=== PATIENT | male | born 1970 | race Caucasian/White ===

== ENCOUNTER 2017-07-06 17:20 | Inpatient (IN) | payer MEDICAID ==
[~2017-07-06] VITALS: Ht 172.7 cm; Wt 72.0 kg
[2017-07-06] MEDS ORDERED: morphine 4 MG/ML VIAL IV STA (18:11)
[2017-07-06] MEDS ORDERED: ONDANSETRON 4 MG INJ IV STA (18:11)
[2017-07-06] MEDS ORDERED: SOD CHLORIDE 0.9% 1,000 ML IV STA (18:11)
[2017-07-06 18:47] LABS: ABNORMAL IP MESSAGE 1; BASOPHIL # 0.1 10^3/ul (0.0-0.1); HEMATOCRIT 46.9 % (42.0-52.0); HEMOGLOBIN 15.7 g/dl (14.0-18.0); LYMPHOCYTES # 0.4 10^3/ul (0.8-2.9); LYMPHOCYTES % 3.7 % (15.0-51.0); MEAN CORPUSCULAR HEMOGLOBIN 33.1 pg (29.0-33.0); MEAN CORPUSCULAR HGB CONC 33.5 g/dl (32.0-37.0); MEAN CORPUSCULAR VOLUME 98.9 fl (82.0-101.0); MEAN PLATELET VOLUME 10.9 fl (7.4-10.4); MONOCYTE # 0.5 10^3/ul (0.3-0.9); MONOCYTES % 4.5 % (0.0-11.0); NEUTROPHILS % 90.2 % (39.0-77.0); PLATELET COUNT 139 10^3/UL (140-415); POSITIVE DIFF @See below; RED BLOOD COUNT 4.74 10^6/ul (4.70-6.10); RED CELL DISTRIBUTION WIDTH 12.3 % (11.5-14.5); WHITE BLOOD COUNT 10.8 10^3/ul (4.8-10.8)
[2017-07-06] MEDS ORDERED: DIAZEPAM 5 MG/ML SYG IV ONE (19:00)
[2017-07-06] MEDS ORDERED: LORAZEPAM 2 MG INJ IV ONE ×2 (19:00→20:00)
[2017-07-06 19:05] LABS: ALBUMIN 5.5 g/dl (3.3-4.9); ALBUMIN/GLOBULIN RATIO 1.41; BILIRUBIN,INDIRECT 0.9 mg/dl (0-1.1); BILIRUBIN,TOTAL 0.9 mg/dl (0.2-1.3); CREATININE 0.9 mg/dl (0.61-1.24); POTASSIUM 3.4 mmol/L (3.5-5.1); TOTAL PROTEIN 9.4 g/dl (6.1-8.1)
[2017-07-06] MEDS ORDERED: MULTI PO (19:07)
[2017-07-06] MEDS ORDERED: [UNRECOGNIZED DRUG - CODE] PO (19:11)
[2017-07-06] MEDS ORDERED: SOD CHLORIDE 0.9% 1,000 ML IV ONE ×2 (20:00→21:30)
[2017-07-06] MEDS ORDERED: ONDANSETRON 4 MG INJ IV PRN ×2 (20:30→21:30)
[2017-07-06] MEDS ORDERED: ACETAMINOPHEN 325 MG TAB PO PRN (20:30)
[2017-07-06 20:47] VITALS: PULSE 117
[2017-07-06 20:53] VITALS: BP 154/86; RESP 19
[2017-07-06 20:55] VITALS: Ht 172.7 cm; Wt 72.0 kg
[2017-07-06] MEDS: SOD CHLORIDE 0.9% 1,000 ML IV SCH (21:30)
--- NOTE | 2017-07-06 21:32 | ERA ---
ER Documentation Chief Complaint Date/Time DATE: 07/06/17 TIME: 21:24 Chief Complaint Pt vomiting since last night, unable to keep any liquids down. HPI This 46-year-old male presents for vomiting since last night. He can hold any food down. He denies any pain whether abdominal or chest. Has no fevers and chills. He does drink heavily every day but is unable to drink alcohol since he started vomiting. Last drink was yesterday. No blood in the vomit. He states that except for being an alcoholic he is otherwise healthy. ROS All systems reviewed and are negative except as per history of present illness. Medications Home Meds Reported Medications Diphenhydramine HCl (Z-Sleep) Unknown Strength Capsule, 1 CAP PO QHS, CAP 07/06/17 Multivitamins* (Theragran*) 1 Tab Tab, 1 TAB PO DAILY Y for PRN, TAB 07/06/17 Allergies Allergies: Coded Allergies: No Known Allergy (Unverified , 07/06/17) PMhx/Soc Medical and Surgical Hx: pt denies Surgical Hx History of Surgery: No Anesthesia Reaction: No Hx Neurological Disorder: No Hx Respiratory Disorders: No Hx Cardiac Disorders: No Hx Miscellaneous Medical Probl: Yes (ETOH abuse) Hx Alcohol Use: Yes (everyday hard liquor) Hx Substance Use: No Hx Tobacco Use: No Smoking Status: Never smoker Physical Exam Vitals Vital Signs Date Time Temp Pulse Resp B/P Pulse Ox O2 Delivery O2 Flow Rate FiO2 07/06/17 19:00 120 20 149/99 97 Room Air 07/06/17 17:24 97.9 130 18 156/104 97 Physical Exam Const: [] Moderate distress, appears very uncomfortable, shaking, vomiting Head: Atraumatic Eyes: Normal Conjunctiva ENT: Normal External Ears, Nose and Mouth. Neck: Full range of motion..~ No meningismus. Resp: Clear to auscultation bilaterally Cardio: Regular tachycardia, no murmurs Abd: Soft, non tender, non distended. Normal bowel sounds Skin: No petechiae or rashes Back: No midline or flank tenderness Ext: No cyanosis, or edema, resting tremor that does not disappear on intention of bilateral upper extremities Neur: Awake and alert and oriented 3, no focal deficits, cranial nerves II through XII intact, no cerebellar deficits Psych: Normal Mood and Affect Result Diagram: 07/06/17 4189 07/06/174 Results 24 hrs Laboratory Tests Test 07/06/17 18:24 White Blood Count 10.810^3/ul Red Blood Count 4.7410^6/ul Hemoglobin 15.7g/dl Hematocrit 46.9% Mean Corpuscular Volume 98.9fl Mean Corpuscular Hemoglobin 33.1pg Mean Corpuscular Hemoglobin Concent 33.5g/dl Red Cell Distribution Width 12.3% Platelet Count 83553^3/UL Mean Platelet Volume 10.9fl Neutrophils % 90.2% Lymphocytes % 3.7% Monocytes % 4.5% Eosinophils % 0.0% Basophils % 1.0% Nucleated Red Blood Cells % 0.0/100WBC Neutrophils # (Manual) 9.710^3/ul Lymphocytes # 0.410^3/ul Monocytes # 0.510^3/ul Eosinophils # 0.010^3/ul Basophils # 0.110^3/ul Nucleated Red Blood Cells # 0.010^3/ul Sodium Level 145mmol/L Potassium Level 3.4mmol/L Chloride Level 98mmol/L Carbon Dioxide Level 17mmol/L Anion Gap 33 Blood Urea Nitrogen 8mg/dl Creatinine 0.90mg/dl Glucose Level 232mg/dl Calcium Level 10.0mg/dl Total Bilirubin 0.9mg/dl Direct Bilirubin 0.00mg/dl Indirect Bilirubin 0.9mg/dl Aspartate Amino Transf (AST/SGOT) 283IU/L Alanine Aminotransferase (ALT/SGPT) 111IU/L Alkaline Phosphatase 154IU/L Total Protein 9.4g/dl Albumin 5.5g/dl Globulin 3.90g/dl Albumin/Globulin Ratio 1.41 Lipase 184U/L Current Medications Medications (Trade) Dose Ordered Sig/Yu Route PRN Reason Start Time Stop Time Status Last Admin Dose Admin Sodium Chloride (NS) 1,000 ml @ 1,000 mls/hr Q1H STAT IV 07/06/17 18:11 07/06/17 19:10 DC 07/06/17 18:38 Morphine Sulfate (morphine) 4 mg ONCE STAT IV 07/06/17 18:11 07/06/17 18:13 DC Ondansetron HCl (Zofran Inj) 4 mg ONCE STAT IV 07/06/17 18:11 07/06/17 18:13 DC 07/06/17 18:38 Diazepam (Valium) 5 mg ONCE ONCE IV 07/06/17 19:00 07/06/17 19:01 DC 07/06/17 18:43 Lorazepam 1 mg 1 mg ONCE ONCE IV 07/06/17 19:00 07/06/17 19:01 DC 07/06/17 18:43 Sodium Chloride (NS) 1,000 ml @ 1,000 mls/hr Q1H ONCE IV 07/06/17 20:00 07/06/17 20:59 DC 07/06/17 19:43 Lorazepam (Ativan) 1 mg ONCE ONCE IV 07/06/17 20:00 07/06/17 20:01 DC 07/06/17 20:18 Procedures/MDM Impending DTs with alcoholic ketoacidosis. An anion gap of 29. Persistent tachycardia. Patient was given 2 mg of Ativan as well as 5 mg of IV Valium. This helped with his symptoms although he was still shaking still tachycardic. He was also given 2 L of IV fluid. No signs of acute cardiac ischemia. Patient has no chest pain or shortness of breath. Is having severe alcohol withdrawal as a should be admitted out of concern for impending DTs and unstable vital signs. Being admitted to telemetry. I communicated with Dr. Aguayo who will be admitting. monitor worker interpretation: Sinus tachycardia improved with fluids and Ativan. No other arrhythmias Critical care time 34 minutes: This includes treatment of unstable vital signs, careful fluid administration, control of vomiting with multiple medications, consideration of invasive procedures and multiple visits patient's bedside to reassess status and unstable vital signs., review of chart, discussion with patient, daughter, admitting doctor. This does not include any billable procedure Departure Diagnosis: Primary Impression: Alcohol withdrawal Additional Impressions: Tachycardia Vomiting Alcoholic ketoacidosis Hyperglycemia Condition: Serious REECERALEIGH Jul 06, 2017 21:32
[2017-07-06] MEDS: MULTIVITAMINS 10 ML, THIAMINE 100 MG, FOLIC ACID 1 MG in SOD CHLORIDE 0.9% 1,000 ML IVPB SCH (23:12)
[2017-07-06] MEDS: CHLORDIAZEPOXIDE 25 MG CAP PO SCH (23:12)
--- NOTE | 2017-07-06 23:51 | HP ---
Date/Time of Note Date/Time of Note DATE: 07/06/17 TIME: 23:51 Assessment/Plan VTE Prophylaxis VTE Prophylaxis Intervention: SCD's Lines/Catheters IV Catheter Type (from Nrsg): Peripheral IV Assessment/Plan Assessment/Plan 1. Alcohol withdrawal -Banana bag, IV fluid, Librium, as needed Ativan -Social work/case management to provide information about AA upon discharge 2. Abnormal LFTs, secondary to alcohol -We will order right upper quadrant ultrasound 3. Hyperglycemia -will check A1c in a.m. -Insulin while in house 4. Electrolyte abnormalities - will correct as needed 5. History of gastritis -PPI HPI/ROS Admit Date/Time Admit Date/Time Jul 06, 2017 at 20:08 Hx of Present Illness This is a 46-year-old male with a history of alcohol abuse, gastritis and anxiety who presented to the emergency department for tremulousness and vomiting. Patient has been drinking heavy liquor on a daily basis for many years. His last drink was yesterday. Because of the persistent vomiting, he was not able to drink. Emesis described as nonbilious and nonbloody. When he presented to the ER, he was tremulous. BP 156/104 with a heart rate of 130. Labs show sodium 145, potassium 3.4, AST 283, ALT 111, alk phos 154 and glucose of 234. . PMH/Family/Social Past Medical History Medical History: other (Gastritis and anxiety) Social History Alcohol Use: heavy Smoking Status: Unknown if ever smoked Drug Use: other (Unknown) Exam/Review of Systems Vital Signs Vitals Vital Signs Date Time Temp Pulse Resp B/P Pulse Ox O2 Delivery O2 Flow Rate FiO2 07/06/17 20:53 99.2 101 19 154/86 96 07/06/17 20:21 Room Air Exam Constitutional: other (Tremulous. In mild distress) Head: atraumatic, normocephalic Eyes: PERRL Respiratory: clear to auscultation, normal air movement Cardiovascular: other (Tachycardic with regular rhythm) Gastrointestinal: non-tender, soft Extremities: normal pulses Labs Result Diagram: 07/06/17 1824 07/06/17 182 Medications Medications Current Medications Chlordiazepoxide (Librium) 75 mg TID PO Last administered on 07/06/17t 23:12; Admin Dose 75 MG; Start 07/06/17 at 22:00 Ondansetron HCl 4 mg 4 mg Q6 PRN IV NAUSEA AND/OR VOMITING; Start 07/06/17 at 21:30 Multivitamins 10 ml/Thiamine HCl 100 mg/Folic Acid 1 mg/Sodium Chloride 1,011.2 ml @ 125 mls/ hr DAILY@09 IVPB Last administered on 07/06/17t 23:12; Admin Dose 125 MLS/HR; Start 07/06/17 at 23:00 Sodium Chloride (NS) 1,000 ml @ 125 mls/hr Q8H IV ; Start 07/06/17 at 21:30 MARIANA WHEATLEY MD Jul 06, 2017 23:51
[2017-07-06 23:54] VITALS: BP 142/96; RESP 18
[2017-07-07] VITALS (10 sets, daily range): BP systolic 134–158; BP diastolic 88–92; PULSE 74–109; RESP 17–19
[2017-07-07] MEDS ORDERED: LORAZEPAM 2 MG INJ IV PRN ×2 (00:30)
[2017-07-07] MEDS: SOD CHLORIDE 0.9% 1,000 ML IV SCH ×3 (05:48→21:30)
[2017-07-07 08:01] LABS: BASOPHIL # 0.1 10^3/ul (0.0-0.1); BASOPHILS % 0.7 % (0.0-2.0); EOSINOPHILS # 0.1 10^3/ul (0.0-0.5); EOSINOPHILS % 0.7 % (0.0-7.0); HEMATOCRIT 40.4 % (42.0-52.0); HEMOGLOBIN 14.1 g/dl (14.0-18.0); LYMPHOCYTES # 0.6 10^3/ul (0.8-2.9); LYMPHOCYTES % 7.7 % (15.0-51.0); MEAN CORPUSCULAR HEMOGLOBIN 34.2 pg (29.0-33.0); MEAN CORPUSCULAR HGB CONC 34.9 g/dl (32.0-37.0); MEAN CORPUSCULAR VOLUME 98.1 fl (82.0-101.0); MONOCYTE # 1.1 10^3/ul (0.3-0.9); MONOCYTES % 13.1 % (0.0-11.0); NEUTROPHILS % 77.3 % (39.0-77.0); PLATELET COUNT 100 10^3/UL (140-415); RED BLOOD COUNT 4.12 10^6/ul (4.70-6.10); WHITE BLOOD COUNT 8.2 10^3/ul (4.8-10.8)
[2017-07-07 08:39] LABS: ALBUMIN 4.4 g/dl (3.3-4.9); ALBUMIN/GLOBULIN RATIO 1.29; BILIRUBIN,INDIRECT 1.5 mg/dl (0-1.1); BILIRUBIN,TOTAL 1.5 mg/dl (0.2-1.3); CALCIUM 8.8 mg/dl (8.4-10.2); CREATININE 0.6 mg/dl (0.61-1.24); MAGNESIUM 1.9 mg/dl (1.7-2.5); PHOSPHORUS 2.3 mg/dl (2.5-4.9); POTASSIUM 3.1 mmol/L (3.5-5.1); TOTAL PROTEIN 7.8 g/dl (6.1-8.1)
[2017-07-07] MEDS: CHLORDIAZEPOXIDE 25 MG CAP PO SCH ×3 (08:44→21:15)
[2017-07-07] MEDS: FAMOTIDINE 20 MG INJ IV SCH ×2 (08:46→21:06)
[2017-07-07] MEDS: MULTIVITAMINS 10 ML, THIAMINE 100 MG, FOLIC ACID 1 MG in SOD CHLORIDE 0.9% 1,000 ML IVPB SCH (08:46)
--- NOTE | 2017-07-07 10:10 | RADRPT ---
PROCEDURE: Right Upper Quadrant Ultrasound. CLINICAL INDICATION: abnormal LFTs,PT NPO, abdominal pain TECHNIQUE: Multiple real-time images were acquired of the patient's right upper quadrant abdomen a nd retroperitoneum utilizing a high resolution transducer. COMPARISON: None FINDINGS: The liver measures 16.9 cm, and demonstrates increased echogenicity. The main portal vein is patent with proper directional flow. There is no intrahepatic biliary ductal dilatation. The extrahepatic c ommon bile duct measures 5 mm. The gallbladder is without stones, wall thickening, or pericholecystic fluid. The pancreas is not well visualized. The right kidney measures 11.4 cm and demonstrates normal echotexture. There is no right renal calcu shirley or hydronephrosis. The visualized abdominal aorta and IVC are grossly unremarkable. IMPRESSION: Mild hepatomegaly with moderate to severe fatty infiltration. No cholelithiasis or acute cholecystitis. Normal CBD. RPTAT: EE Physician Jayce Date Time Electronically viewed and signed by Physician Jayce on 07/07/2017 10:09 /
[2017-07-07] MEDS ORDERED: POTASSIUM CHLORIDE 250 ML IVPB ONE (11:00)
--- NOTE | 2017-07-07 15:45 | PN ---
Date/Time of Note Date/Time of Note DATE: 07/07/17 TIME: 15:42 Assessment/Plan VTE Prophylaxis VTE Prophylaxis Intervention: SCD's Lines/Catheters IV Catheter Type (from Nrs): Peripheral IV Assessment/Plan Chief Complaint/Hosp Course 1. Alcohol withdrawal -Banana bag, IV fluid, Librium, as needed Ativan -Social work/case management to provide information about AA upon discharge 2. Abnormal LFTs, secondary to alcohol -Abdominal ultrasound shows Mild hepatomegaly with moderate to severe fatty infiltration, otherwise normal 3. Hyperglycemia-resolved -A1c at 6.1 4. Electrolyte abnormalities - will correct as needed 5. History of gastritis -Pepcid Prophylaxis: SCDs Problems: Subjective 24 Hr Interval Summary Constitutional: no complaints Exam/Review of Systems Vital Signs Vitals Vital Signs Date Time Temp Pulse Resp B/P Pulse Ox O2 Delivery O2 Flow Rate FiO2 07/07/17 12:08 89 07/07/17 11:37 97.7 17 152/90 96 07/06/17 20:21 Room Air Intake and Output 07/06/17 07/06/17 07/07/17 15:00 23:00 07:00 Intake Total 2011.2 ml Output Total 1000 ml Balance 1011.2 ml Exam Constitutional: alert Respiratory: clear to auscultation Cardiovascular: regular rate and rhythm Gastrointestinal: soft, No distended Musculoskeletal: nl extremities to inspection Results Result Diagram: 07/07/17 0721 07/07/17 0721 Results 24 hrs Laboratory Tests Test 07/06/17 18:24 07/07/17 07:21 White Blood Count 10.8 8.2 # Red Blood Count 4.74 4.12 L Hemoglobin 15.7 14.1 Hematocrit 46.9 40.4 L Mean Corpuscular Volume 98.9 98.1 Mean Corpuscular Hemoglobin 33.1 H 34.2 H Mean Corpuscular Hemoglobin Concent 33.5 34.9 Red Cell Distribution Width 12.3 12.0 Platelet Count 139 L 100 #L Mean Platelet Volume 10.9 H 11.0 H Neutrophils % 90.2 H 77.3 H Lymphocytes % 3.7 L 7.7 L Monocytes % 4.5 13.1 H Eosinophils % 0.0 0.7 Basophils % 1.0 0.7 Nucleated Red Blood Cells % 0.0 0.0 Neutrophils # (Manual) 9.7 H 6.4 Lymphocytes # 0.4 L 0.6 L Monocytes # 0.5 1.1 H Eosinophils # 0.0 0.1 Basophils # 0.1 0.1 Nucleated Red Blood Cells # 0.0 0.0 Sodium Level 145 H 142 Potassium Level 3.4 L 3.1 L Chloride Level 98 97 Carbon Dioxide Level 17 L 27 # Anion Gap 33 H 21 #H Blood Urea Nitrogen 8 6 L Creatinine 0.90 0.60 L Glucose Level 232 H 101 # Calcium Level 10.0 8.8 Total Bilirubin 0.9 1.5 H Direct Bilirubin 0.00 0.00 Indirect Bilirubin 0.9 1.5 H Aspartate Amino Transf (AST/SGOT) 283 H 178 H Alanine Aminotransferase (ALT/SGPT) 111 H 90 H Alkaline Phosphatase 154 H 117 Total Protein 9.4 H 7.8 # Albumin 5.5 H 4.4 # Globulin 3.90 H 3.40 H Albumin/Globulin Ratio 1.41 1.29 Lipase 184 Hemoglobin A1c 6.1 H Phosphorus Level 2.3 L Magnesium Level 1.9 Medications Medications Current Medications Chlordiazepoxide (Librium) 75 mg TID PO Last administered on 07/07/17 12:46; Admin Dose 75 MG; Start 07/06/17 at 22:00 Ondansetron HCl 4 mg 4 mg Q6 PRN IV NAUSEA AND/OR VOMITING Last administered on 07/07/17 08:41; Admin Dose 4 MG; Start 07/06/17 at 21:30 Multivitamins 10 ml/Thiamine HCl 100 mg/Folic Acid 1 mg/Sodium Chloride 1,011.2 ml @ 125 mls/ hr DAILY@09 IVPB Last administered on 07/07/17 08:46; Admin Dose 125 MLS/HR; Start 07/06/17 at 23:00 Sodium Chloride (NS) 1,000 ml @ 125 mls/hr Q8H IV Last administered on 05:48; Admin Dose 125 MLS/HR; Start 07/06/17 at 21:30 Lorazepam (Ativan) 2 mg Q1H PRN IV CONTROL WITHDRAWAL SYMPTOMS Last administered on 07/07/17 00:59; Admin Dose 2 MG; Start 07/07/17 at 00:30 Lorazepam (Ativan) 1 mg Q3 PRN IV ANXIETY; Start 07/07/17 at 00:30 Famotidine (Pepcid Iv) 20 mg BID IV Last administered on 07/07/17t 08:46; Admin Dose 20 MG; Start 07/07/17 at 09:00 NUBIA BRISCOE Jul 07, 2017 15:45
[2017-07-08] VITALS (12 sets, daily range): BP systolic 120–152; BP diastolic 83–99; PULSE 72–119; RESP 16–19
[2017-07-08] MEDS: SOD CHLORIDE 0.9% 1,000 ML IV SCH ×2 (04:51→13:30)
[2017-07-08 06:57] LABS: ABNORMAL IP MESSAGE 1; BASOPHIL # 0.1 10^3/ul (0.0-0.1); BASOPHILS % 1.3 % (0.0-2.0); EOSINOPHILS # 0.1 10^3/ul (0.0-0.5); EOSINOPHILS % 2.2 % (0.0-7.0); HEMATOCRIT 41.4 % (42.0-52.0); HEMOGLOBIN 14.6 g/dl (14.0-18.0); LYMPHOCYTES # 1.2 10^3/ul (0.8-2.9); LYMPHOCYTES % 19.5 % (15.0-51.0); MEAN CORPUSCULAR HEMOGLOBIN 34.2 pg (29.0-33.0); MEAN CORPUSCULAR HGB CONC 35.3 g/dl (32.0-37.0); MONOCYTE # 0.9 10^3/ul (0.3-0.9); MONOCYTES % 13.7 % (0.0-11.0); NEUTROPHILS % 62.8 % (39.0-77.0); PLATELET COUNT 99 10^3/UL (140-415); POSITIVE DIFF @See below; RED BLOOD COUNT 4.27 10^6/ul (4.70-6.10); RED CELL DISTRIBUTION WIDTH 11.8 % (11.5-14.5); WHITE BLOOD COUNT 6.4 10^3/ul (4.8-10.8)
[2017-07-08 07:29] LABS: ALBUMIN 4.1 g/dl (3.3-4.9); ALBUMIN/GLOBULIN RATIO 1.28; BILIRUBIN,INDIRECT 1.6 mg/dl (0-1.1); BILIRUBIN,TOTAL 1.6 mg/dl (0.2-1.3); CALCIUM 8.9 mg/dl (8.4-10.2); CREATININE 0.76 mg/dl (0.61-1.24); POTASSIUM 3.1 mmol/L (3.5-5.1); TOTAL PROTEIN 7.3 g/dl (6.1-8.1)
[2017-07-08 07:34] LABS: MAGNESIUM 1.8 mg/dl (1.7-2.5); PHOSPHORUS 2.2 mg/dl (2.5-4.9)
[2017-07-08] MEDS: FAMOTIDINE 20 MG INJ IV SCH (08:16)
[2017-07-08] MEDS: CHLORDIAZEPOXIDE 25 MG CAP PO SCH ×3 (08:16→21:12)
[2017-07-08] MEDS: MULTIVITAMINS 10 ML, THIAMINE 100 MG, FOLIC ACID 1 MG in SOD CHLORIDE 0.9% 1,000 ML IVPB SCH (08:16)
[2017-07-08] MEDS: POTASSIUM CHLORIDE (SR) 20 MEQ TAB PO SCH ×2 (17:10→21:12)
--- NOTE | 2017-07-08 19:11 | PN ---
Date/Time of Note Date/Time of Note DATE: 07/08/17 TIME: 19:10 Assessment/Plan VTE Prophylaxis VTE Prophylaxis Intervention: SCD's Lines/Catheters IV Catheter Type (from Nrs): Peripheral IV Assessment/Plan Chief Complaint/Hosp Course 1. Alcohol withdrawal -Banana bag, IV fluid, Librium, as needed Ativan -Social work/case management to provide information about AA upon discharge -Advance diet to regular 2. Abnormal LFTs, secondary to alcohol -Abdominal ultrasound shows Mild hepatomegaly with moderate to severe fatty infiltration, otherwise normal 3. Hyperglycemia-resolved -A1c at 6.1 4. Electrolyte abnormalities - will correct as needed 5. History of gastritis -Pepcid Prophylaxis: SCDs Problems: Subjective 24 Hr Interval Summary Constitutional: no complaints Exam/Review of Systems Vital Signs Vitals Vital Signs Date Time Temp Pulse Resp B/P Pulse Ox O2 Delivery O2 Flow Rate FiO2 07/08/17 16:36 98.0 91 17 138/87 94 07/06/17 20:21 Room Air Intake and Output 07/07/17 07/07/17 07/08/17 15:00 23:00 07:00 Intake Total 400 ml 1511.2 ml 300 ml Balance 400 ml 1511.2 ml 300 ml Exam Constitutional: alert Respiratory: clear to auscultation Cardiovascular: regular rate and rhythm Gastrointestinal: soft, No distended Musculoskeletal: nl extremities to inspection Results Result Diagram: 07/08/17 0638 07/08/17 0638 Results 24 hrs Laboratory Tests Test 07/08/17 06:38 White Blood Count 6.4 # Red Blood Count 4.27 L Hemoglobin 14.6 Hematocrit 41.4 L Mean Corpuscular Volume 97.0 Mean Corpuscular Hemoglobin 34.2 H Mean Corpuscular Hemoglobin Concent 35.3 Red Cell Distribution Width 11.8 Platelet Count 99 L Mean Platelet Volume 11.0 H Neutrophils % 62.8 Lymphocytes % 19.5 Monocytes % 13.7 H Eosinophils % 2.2 Basophils % 1.3 Nucleated Red Blood Cells % 0.0 Neutrophils # (Manual) 4.0 Lymphocytes # 1.2 Monocytes # 0.9 Eosinophils # 0.1 Basophils # 0.1 Nucleated Red Blood Cells # 0.0 Sodium Level 136 Potassium Level 3.1 L Chloride Level 97 Carbon Dioxide Level 26 Anion Gap 16 Blood Urea Nitrogen 5 L Creatinine 0.76 Glucose Level 97 Calcium Level 8.9 Phosphorus Level 2.2 L Magnesium Level 1.8 Total Bilirubin 1.6 H Direct Bilirubin 0.00 Indirect Bilirubin 1.6 H Aspartate Amino Transf (AST/SGOT) 104 H Alanine Aminotransferase (ALT/SGPT) 69 Alkaline Phosphatase 99 Total Protein 7.3 Albumin 4.1 Globulin 3.20 Albumin/Globulin Ratio 1.28 Medications Medications Current Medications Chlordiazepoxide (Librium) 75 mg TID PO Last administered on 07/08/17 12:11; Admin Dose 75 MG; Start 07/06/17 at 22:00 Ondansetron HCl 4 mg 4 mg Q6 PRN IV NAUSEA AND/OR VOMITING Last administered on 07/07/17 08:41; Admin Dose 4 MG; Start 07/06/17 at 21:30 Multivitamins/ Thiamine HCl/ Folic Acid/Sodium Chloride (Mvi Adult/ Vitamin B1/ Folic Acid/NS) 1,011.2 ml @ 125 mls/ hr DAILY@09 IVPB Last administered on 08:16; Admin Dose 125 MLS/HR; Start 07/06/17 at 23:00 Lorazepam (Ativan) 2 mg Q1H PRN IV CONTROL WITHDRAWAL SYMPTOMS Last administered on 07/07/17 00:59; Admin Dose 2 MG; Start 07/07/17 at 00:30 Lorazepam (Ativan) 1 mg Q3 PRN IV ANXIETY; Start 07/07/17 at 00:30 Potassium Chloride (Klor-Con 20) 40 meq Q4H PO Last administered on 07/08/17 17:10; Admin Dose 40 MEQ; Start 07/08/17 at 17:00; Stop 07/08/17 at 21:01 Famotidine (Pepcid) 20 mg BID PO ; Start 07/08/17 at 21:00 NUBIA BRISCOE Jul 08, 2017 19:11
[2017-07-08] MEDS: FAMOTIDINE 20 MG TAB PO SCH (21:12)
[2017-07-08] MEDS ORDERED: ALBUTEROL/IPRATROPIUM (NEB) 3 ML AMP HHN STA (21:17)
[2017-07-08] MEDS ORDERED: ALBUTEROL/IPRATROPIUM (NEB) 3 ML AMP HHN PRN (21:30)
[2017-07-08] MEDS ORDERED: GUAIFENESIN 20 MG/ML 5ML CUP PO ONE (21:30)
[2017-07-09] VITALS (7 sets, daily range): BP systolic 110–129; BP diastolic 76–87; PULSE 87–105; RESP 16–19
[2017-07-09 07:20] LABS: ALBUMIN/GLOBULIN RATIO 1.15; PHOSPHORUS 2.8 mg/dl (2.5-4.9)
[2017-07-09 07:24] LABS: ALBUMIN 3.7 g/dl (3.3-4.9); BILIRUBIN,INDIRECT 1.3 mg/dl (0-1.1); BILIRUBIN,TOTAL 1.3 mg/dl (0.2-1.3); CALCIUM 9.4 mg/dl (8.4-10.2); CREATININE 0.83 mg/dl (0.61-1.24); POTASSIUM 3.7 mmol/L (3.5-5.1); TOTAL PROTEIN 6.9 g/dl (6.1-8.1)
[2017-07-09] MEDS: MULTIVITAMINS 10 ML, THIAMINE 100 MG, FOLIC ACID 1 MG in SOD CHLORIDE 0.9% 1,000 ML IVPB SCH (08:28)
[2017-07-09] MEDS: FAMOTIDINE 20 MG TAB PO SCH (08:28)
[2017-07-09] MEDS: CHLORDIAZEPOXIDE 25 MG CAP PO SCH ×2 (08:28→13:11)
--- NOTE | 2017-07-09 11:21 | PDOCDIS ---
Discharge Instructions CONDITION Patient Condition: Good HOME CARE INSTRUCTIONS: Diet Instructions: Regular ACTIVITY: Activity Restrictions: No Restrictions FOLLOW UP/APPOINTMENTS Follow-up Plan F/U WITH YOUR PCP IN 1-2 WEEKS, F/U WITH AN ALCOHOL CESSATION PROGRAM NUBIA BRISCOE Jul 09, 2017 11:21
[2017-07-09] MEDS ORDERED: LORA1TAB PO (11:36)
--- NOTE | 2017-07-09 14:01 | DS ---
Date/Time of Note Date/Time of Note DATE: 07/09/17 TIME: 13:57 Discharge Summary Admission/Discharge Info Admit Date/Time Jul 06, 2017 at 20:08 Discharge Date/Time Jul 09, 2017 at 13:38 Discharge Diagnosis 1. Alcohol withdrawal-resolved -Spouse banana bag, IV fluid, Librium, as needed Ativan -Social work/case management as provides information about AA 2. Abnormal LFTs, secondary to alcohol -Abdominal ultrasound shows Mild hepatomegaly with moderate to severe fatty infiltration, otherwise normal 3. Hyperglycemia-resolved -A1c at 6.1 4. Electrolyte abnormalities -Repleted Patient Condition: Good Hx of Present Illness T Hospital Course Patient is a 46-year-old male with a history of alcohol abuse, gastritis and anxiety who presented to the emergency department for tremulousness and vomiting. Patient has been drinking heavy liquor on a daily basis for many years. She was admitted for alcohol withdrawals he received a banana bag IV fluids and Ativan as needed. 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 Patient's condition did improve with improvement of his alcohol withdrawal. Patient was seen by medical social worker and was given information about alcoholic anonymous. On day of discharge patient's vitals, labs and physical exam were stable, he had no further acute complaints and questions are answered. Patient was advised on alcohol cessation. Home Meds Active Scripts Lorazepam* (Lorazepam*) 1 Mg Tablet, 1 MG PO HS Y for INSOMNIA, #30 TAB 1 Refill Prov:NUBIA BRISCOE 07/09/17 Reported Medications Diphenhydramine HCl (Z-Sleep) Unknown Strength Capsule, 1 CAP PO QHS, CAP 07/06/17 Multivitamins* (Theragran*) 1 Tab Tab, 1 TAB PO DAILY Y for PRN, TAB 07/06/17 Follow-up Plan Follow with PCP 1-2 weeks, follow-up with AA Primary Care Provider Care Physician No Primary Time spent on discharge: > 30 minutes NUBIA BRISCOE Jul 09, 2017 14:00
== END 2017-07-09 13:38 | disposition home or self-care (01) | DRG 897 ==
LOC: E/R 17:20 → MS4 20:08
PROVIDERS: ADMIT Internal Medicine; ATTEND Internal Medicine
DX: F10.239 Alcohol dependence with withdrawal, unspecified (principal); E87.8 Other disorders of electrolyte and fluid balance, not elsewhere classified; K76.0 Fatty (change of) liver, not elsewhere classified; F41.9 Anxiety disorder, unspecified; K29.70 Gastritis, unspecified, without bleeding; R73.9 Hyperglycemia, unspecified; K70.10 Alcoholic hepatitis without ascites
CPT/HCPCS: 36415; 76705; 80053; 83036; 83690; 83735; 84100; 85025; 94664; 96374; 96375; 96376; J2060; J2270; J2405; J3360; J3411; J3480; J7030